=== PATIENT | male | born 1985 | race Caucasian/White ===

== ENCOUNTER → 2016-03-23 | Outpatient (CLI) | payer OTHER ==
--- NOTE | 2016-03-23 16:26 | KCIC ---
PROCEDURE Left toes. HISTORY Stubbed toe on the 23 of February with persistent pain with bending. TECHNIQUE Three views of the left toes are submitted for review. COMPARISON None. FINDINGS Potential avulsion fracture from the base of the distal phalanx of the 1st digit is noted on the oblique view only. Fragmented osteophyte is also a consideration. Otherwise, there is no fracture and there is no dislocation. There soft tissue swelling. IMPRESSION Suspected avulsion fracture from the base of the distal phalanx of the 1st digit. This appears acute and traumatic. Electronically signed by: Drew Rudolph MD (Mar 23, 2016 16:25:22)
== END | disposition home or self-care (01) ==
LOC: KCIC 14:57
PROVIDERS: ATTEND Family Medicine
DX: M79.675 Pain in left toe(s) (principal)
CPT/HCPCS: 73660